=== PATIENT | female | born 1940 | race Caucasian/White ===

== ENCOUNTER 2017-02-10 16:12 | Emergency (ER) | payer MEDICARE, OTHER ==
[2017-02-10] MEDS ORDERED: cefTRIAXone 1 GM in Sodium Chloride 0.9% 50 ML IV ONE (17:52)
--- NOTE | 2017-02-10 17:56 | EDM.PDOC ---
<Najma Tovar - Last Filed: 02/10/17 17:56> ED HPI GENERAL MEDICAL PROBLEM - General Chief Complaint: Lower Extremity Injury/Pain Stated Complaint: ILLNESS FROM THE CLINIC Time Seen by Provider: 02/10/17 17:52 Source of Information: Reports: Patient History Limitations: Reports: No Limitations - History of Present Illness INITIAL COMMENTS - FREE TEXT/NARRATIVE: pt arrived with marked swelling of the great toe and the second toe. This is very hot. The second toe is particularly tender. She has not injured the foot. She was seen yesterday in the clinic and had a uric acid that was moderately elevated. She was started on augmentin and it has not improved. She was sent here because of lack of improvement and on going inflamation Onset: Gradual, Other ( started monday. ) Duration: Day(s):, Getting Worse Location: Reports: Lower Extremity, Right Associated Symptoms: Reports: No Other Symptoms - Related Data Allergies Allergy/AdvReac Type Severity Reaction Status Date / Time No Known Allergies Allergy Verified 09/05/13 10:30 Home Meds: Home Meds Amoxicillin/Clavulanate K [Augmentin 875-125 MG] 02/10/17 [History] Oxybutynin 02/10/17 [History] Past Medical History Musculoskeletal History: Reports: Back Pain, Chronic Dermatologic History: Reports: Benign Melanoma Social & Family History - Tobacco Use Smoking Status *Q: Never Smoker Review of Systems - Review of Systems Review Of Systems: See Below Constitutional: Reports: No Symptoms Eyes: Reports: No Symptoms Ears: Reports: No Symptoms Nose: Reports: No Symptoms Mouth/Throat: Reports: No Symptoms Respiratory: Reports: No Symptoms Cardiovascular: Reports: No Symptoms GI/Abdominal: Reports: No Symptoms Musculoskeletal: Reports: Other ( pain and swelling in the rt foot. ) Skin: Reports: No Symptoms ED EXAM, GENERAL - Physical Exam Free Text/Narrative:: On monday she had pain in the second toe and that has been progressive since that time. She was started on augmentin yesterday and it does not look better today. She is not a diabetic. Exam Limited By: No Limitations General Appearance: Alert, Anxious, Moderate Distress Ears: Normal TMs Nose: Normal Inspection Throat/Mouth: Normal Inspection Head: Atraumatic Neck: Normal Inspection Respiratory/Chest: No Respiratory Distress Cardiovascular: Regular Rate, Rhythm Extremities: Other ( rt foot is red and hot. The hotest and most tender area is the second toe. The geat toe isalso very hot and tender. She has good filluing. She has no known injury. ) Psychiatric: Normal Affect Course - Vital Signs Last Recorded V/S: Last Vital Signs Temp 97.7 F 02/10/17 16:48 Pulse 93 02/10/17 16:48 Resp 16 02/10/17 16:48 BP 136/86 02/10/17 16:48 Pulse Ox 96 02/10/17 16:48 - Orders/Labs/Meds Labs: Laboratory Tests 02/10/17 02/10/17 02/10/17 Range/Units 17:51 17:51 17:51 WBC 9.6 (4.5-11.0) K/uL RBC 4.24 (3.30-5.50) M/uL Hgb 12.8 (12.0-15.0) g/dL Hct 39.6 (36.0-48.0) % MCV 93 (80-98) fL MCH 30 (27-31) pg MCHC 32 (32-36) % Plt Count 353 (150-400) K/uL Neut % (Auto) 66 (36-66) % Lymph % (Auto) 22 L (24-44) % Elk % (Auto) 10 H (2-6) % Eos % (Auto) 2 (2-4) % Baso % (Auto) 0 (0-1) % Sodium 139 L (140-148) mmol/L Potassium 4.4 (3.6-5.2) mmol/L Chloride 104 (100-108) mmol/L Carbon Dioxide 27 (21-32) mmol/L Anion Gap 12.4 (5.0-14.0) mmol/L BUN 20 H (7-18) mg/dL Creatinine 1.4 H (0.6-1.0) mg/dL Est Cr Clr Drug Dosing 31.00 mL/min Estimated GFR (MDRD) 36 L (>60) Glucose 109 H (74-106) mg/dL Uric Acid 6.9 H (2.6-6.2) mg/dL Calcium 9.4 (8.5-10.1) mg/dL Total Bilirubin 0.3 (0.2-1.0) mg/dL AST 22 (15-37) U/L ALT 15 (12-78) U/L Alkaline Phosphatase 62 (46-116) U/L Total Protein 7.3 (6.4-8.2) g/dL Albumin 3.2 L (3.4-5.0) g/dL Globulin 4.1 H (2.3-3.5) g/dL Albumin/Globulin Ratio 0.8 L (1.2-2.2) Meds: Medications Discontinued Medications Generic Name Dose Route Start Last Admin Trade Name Lillie PRN Reason Stop Dose Admin Sodium Chloride 1,000 mls @ 500 mls/hr 02/10/17 18:00 02/10/17 18:42 Normal Saline IV 500 mls/hr ASDIRECTED RYAN Administration Ceftriaxone Sodium 1 gm/ 50 mls @ 100 mls/hr 02/10/17 17:52 02/10/17 18:43 Sodium Chloride IV 02/10/17 18:21 100 mls/hr ONETIME ONE Administration Departure - Departure Disposition: Home, Self-Care 01 Clinical Impression: Cellulitis of right foot - Discharge Information Instructions: Cellulitis, Adult, [id number] Referrals: Aurora Stevens CNM [Primary Care Provider] - Forms: ED Department Discharge Care Plan Goals: Continue taking her antibiotic medication as prescribed, return tomorrow afternoon for another IV dose as planned. Return sooner if worsening such as fever, increased pain or other concerns. <Brannon Murphy - Last Filed: 02/10/17 22:48> ED EXAM, GENERAL - Physical Exam Exam: See Below Course - Re-Assessments/Exams Free Text/Narrative Re-Assessment/Exam: 02/10/17 19:11 68-year-old female with right foot cellulitis seen and evaluated by Dr. Tovar. 1 g of IV Rocephin was given, Dr. Mccloud also looked at the foot. She 'll continue on her Augmentin and return tomorrow for another IV dose of Rocephin, returning sooner if worsening. Departure - Departure Time of Disposition: 19:21 Condition: Fair
[2017-02-10] MEDS ORDERED: Sodium Chloride 0.9% 1,000 ML IV SCH (18:00)
== END 2017-02-10 19:21 | disposition home or self-care (01) ==
LOC: JP.ED 16:12
DX: L03.031 Cellulitis of right toe (principal)
CPT/HCPCS: 36415; 80053; 84550; 85025; 96361; 96365; 99284; J0696; J7040; J7050; 99283

== ENCOUNTER 2017-02-16 09:19 | Emergency (ER) | payer MEDICARE, OTHER ==
--- NOTE | 2017-02-16 10:07 | EDM.PDOC ---
ED HPI GENERAL MEDICAL PROBLEM - General Chief Complaint: Skin Complaint Stated Complaint: SWOLLEN RT FOOT Time Seen by Provider: 02/16/17 09:40 Source of Information: Reports: Patient History Limitations: Reports: No Limitations - History of Present Illness INITIAL COMMENTS - FREE TEXT/NARRATIVE: 76-year-old female with a persistent inflamed and painful right foot is not responding to antibiotics. She received 2 IV courses of Rocephin several days ago and has been continuing on Augmentin. She had a recheck appointment at the clinic today and they didn't feel she was improving so she was sent to the emergency room. She does not feel ill, no fevers or chills. The pain seems worse when she is lifting her foot off of the ground. 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 (see below) (Patient had 2 doses of IV Rocephin and has been on Augmentin for the past week) - Related Data Allergies Allergy/AdvReac Type Severity Reaction Status Date / Time No Known Allergies Allergy Verified 02/16/17 09:32 Home Meds: Home Meds Amoxicillin/Clavulanate K [Augmentin 875-125 MG] 02/10/17 [History] Oxybutynin 02/10/17 [History] Past Medical History Musculoskeletal History: Reports: Back Pain, Chronic Dermatologic History: Reports: Benign Melanoma Social & Family History - Tobacco Use Smoking Status *Q: Never Smoker ED ROS GENERAL - Review of Systems Review Of Systems: See Below Constitutional: Denies: Fever, Chills, Malaise Respiratory: Denies: Shortness of Breath Cardiovascular: Denies: Chest Pain GI/Abdominal: Denies: Abdominal Pain, Nausea, Vomiting Skin: Reports: Erythema Neurological: Reports: No Symptoms Psychiatric: Reports: No Symptoms ED EXAM, SKIN/RASH Exam: See Below Exam Limited By: No Limitations General Appearance: Alert, No Apparent Distress Respiratory/Chest: No Respiratory Distress Extremities: Other (Exam is otherwise limited to the right foot. She still has diffuse erythema through the second toe, some redness extending onto the large toe and edema of the forefoot. Her second toe is particularly tender to any palpation or manipulation. She does have adequate capillary refill to the large toe and second toe to the nailbed.) Course - Vital Signs Last Recorded V/S: Last Vital Signs Temp 96.9 F 02/16/17 09:38 Pulse 92 02/16/17 09:38 Resp 14 02/16/17 09:38 BP 147/83 H 02/16/17 09:38 Pulse Ox 98 02/16/17 09:38 - Orders/Labs/Meds Orders: Active Orders 24 hr Category Date Time Status Foot wo Cont Rt [CT] Stat Exams 02/16/17 09:46 Taken Labs: Laboratory Tests 02/16/17 02/16/17 Range/Units 09:55 09:55 WBC 9.4 (4.5-11.0) K/uL RBC 4.08 (3.30-5.50) M/uL Hgb 12.0 (12.0-15.0) g/dL Hct 37.8 (36.0-48.0) % MCV 93 (80-98) fL MCH 29 (27-31) pg MCHC 32 (32-36) % Plt Count 356 (150-400) K/uL Neut % (Auto) 73 H (36-66) % Lymph % (Auto) 16 L (24-44) % [place] % (Auto) 10 H (2-6) % Eos % (Auto) 1 L (2-4) % Baso % (Auto) 0 (0-1) % C-Reactive Protein 1.36 H (0.0-0.3) mg/dL Meds: Medications Discontinued Medications Generic Name Dose Route Start Last Admin Trade Name Lillie PRN Reason Stop Dose Admin Bupivacaine HCl Confirm 02/16/17 10:58 Marcaine 0.5% Administered 02/16/17 10:59 Dose 30 ml .ROUTE .STK-MED ONE Bupivacaine HCl 30 ml 02/16/17 11:06 02/16/17 11:11 Marcaine 0.5% IARTIC 02/16/17 11:07 30 ml ONETIME ONE Administration Triamcinolone Acetonide Confirm 02/16/17 10:58 02/16/17 11:11 Kenalog-40 Administered 02/16/17 10:59 80 mg Dose Administration 80 mg .ROUTE .STK-MED ONE Triamcinolone Acetonide 80 mg 02/16/17 11:05 Kenalog-40 IARTIC 02/16/17 11:06 ONETIME ONE - Re-Assessments/Exams Free Text/Narrative Re-Assessment/Exam: 02/16/17 10:07 A CRP and CBC was redrawn. I discussed her condition with Enoc Cabral, orthopedics and a CT of the foot was recommended which was ordered. 02/16/17 11:09 CT showed no definite evidence of infection, in fact it is likely a persistent arthritic inflammatory response. Dr. Cabral then was kind enough to inject Kenalog into the inflamed area. Patient will be started on a Medrol Dosepak and continue her antibiotics for the weekend. Departure - Departure Time of Disposition: 11:35 Disposition: Home, Self-Care 01 Condition: Good Clinical Impression: Osteoarthritis Qualifiers: Osteoarthritis location: foot Osteoarthritis type: primary Laterality: right Qualified Code(s): M19.071 - Primary osteoarthritis, right ankle and foot - Discharge Information Instructions: Osteoarthritis Referrals: Aurora Stevens CNM [Primary Care Provider] - Forms: ED Department Discharge Care Plan Goals: Continue the antibiotics as prescribed, take the Medrol Dosepak as prescribed, and increase activity as tolerated. Return anytime if worsening, especially fevers or increased redness or pain of the foot. - My Orders Last 24 Hours: My Active Orders 02/16/17 09:46 Foot wo Cont Rt [CT] Stat - Assessment/Plan Last 24 Hours: My Active Orders 02/16/17 09:46 Foot wo Cont Rt [CT] Stat
[2017-02-16] MEDS ORDERED: Triamcinolone Acetonide 40 MG/ML 1 ML MDV ONE (10:58)
[2017-02-16] MEDS ORDERED: Bupivacaine 0.5% 30 ML SDV ONE (10:58)
[2017-02-16] MEDS ORDERED: Bupivacaine 0.5% 30 ML SDV IARTIC ONE (11:06)
--- NOTE | 2017-02-16 12:05 | CT ---
Foot wo Cont Rt HISTORY: inflammation toes not responding to treatment Axial spiral CT scan of the right foot was obtained along with sagittal and coronal reconstructions. There are no prior exams for comparison. FINDINGS: Joint space narrowing and erosive changes with mild marginal osteophytes is seen about the IP joint right great toe. Similar erosive and hypertrophic changes are seen at the DIP joint left sec ond toe. No fracture is identified. There is mild soft tissue swelling/edema first and second toes. Joint space narrowing and early lateral marginal osteophyte is seen at the right first MTP joint. IMPRESSION: 1. Mild soft tissue swelling and edema right first and second toes. 2. Joint space and with adjacent erosive changes and marginal osteophytes at the AP joint right great toe and DIP joint right second toe are favored to be degenerative or inflammatory. Osteomyelitis is felt to be less likely but not entirely excluded. Gout could be considered. No definite gouty tophus is seen. Total DLP 220 mGycm
== END 2017-02-16 11:35 | disposition home or self-care (01) ==
LOC: JP.ED 09:19
DX: M19.071 Primary osteoarthritis, right ankle and foot (principal)
CPT/HCPCS: 36415; 73700; 85025; 86140; 96372; 99283; 99284; J3301

== ENCOUNTER 2017-05-22 12:18 | Emergency (ER) | payer MEDICARE, OTHER ==
--- NOTE | 2017-05-22 13:04 | EDM.PDOC ---
ED HPI GENERAL MEDICAL PROBLEM - General Chief Complaint: Lower Extremity Injury/Pain Stated Complaint: RT FOOT ISSUES Time Seen by Provider: 05/22/17 12:45 Source of Information: Reports: Patient History Limitations: Reports: No Limitations - History of Present Illness INITIAL COMMENTS - FREE TEXT/NARRATIVE: 76-year-old female that is developing some recurring inflammation in her right foot. She had a similar episode last year that was treated as cellulitis but was actually an inflammatory osteoarthritis problem that responded to an injection of steroids. She wanted to catch this before it gets worse, its been bothering her for the last 48 hours. No fever or chills, no significant erythema. Onset: Gradual (Over the past several days) Severity: Mild Associated Symptoms: Reports: No Other Symptoms toe Pain Score (Numeric/FACES): 1 - Related Data Allergies Allergy/AdvReac Type Severity Reaction Status Date / Time No Known Allergies Allergy Verified 05/22/17 12:33 Home Meds: Home Meds Oxybutynin 2.5 mg PO BID 02/10/17 [History] Calcium Carbonate/Vitamin D3 [Calcium 1,000 + D3 Caplet] 1 tab PO DAILY [History] Past Medical History HEENT History: Reports: Cataract Genitourinary History: Reports: Urinary Incontinence Musculoskeletal History: Reports: Back Pain, Chronic, Fracture Oncologic (Cancer) History: Reports: Breast Dermatologic History: Reports: Benign Melanoma - Infectious Disease History Infectious Disease History: Reports: Chicken Pox - Past Surgical History HEENT Surgical History: Reports: Cataract Surgery Female Surgical History: Reports: Breast Biopsy Musculoskeletal Surgical History: Reports: Other (See Below) Other Musculoskeletal Surgeries/Procedures:: spinal surgery Oncologic Surgical History: Reports: Biopsy of Breast, Lumpectomy Social & Family History - Tobacco Use Smoking Status *Q: Never Smoker - Caffeine Use Caffeine Use: Reports: Coffee - Recreational Drug Use Recreational Drug Use: No Review of Systems - Review of Systems Review Of Systems: See Below Constitutional: Denies: Fever Respiratory: Denies: Shortness of Breath Cardiovascular: Denies: Chest Pain GI/Abdominal: Denies: Nausea, Vomiting Skin: Denies: Erythema Neurological: Denies: Paresthesia ED EXAM, GENERAL - Physical Exam Exam: See Below Exam Limited By: No Limitations General Appearance: Alert, No Apparent Distress Respiratory/Chest: No Respiratory Distress Extremities: Other (Exam is otherwise limited to the feet. There is a small amount of swelling to the MP and IP joint of the right large toe, no significant erythema and only mild tenderness to palpation and range of motion.) Course - Vital Signs Last Recorded V/S: Last Vital Signs Temp 94.1 F L 05/22/17 12:35 Pulse 92 05/22/17 12:35 Resp 16 05/22/17 12:35 BP 150/99 H 05/22/17 12:35 Pulse Ox 96 05/22/17 12:35 - Re-Assessments/Exams Free Text/Narrative Re-Assessment/Exam: 05/22/17 13:02 Patient was placed on 50 mg of prednisone daily for the next 3 days, with a recheck scheduled with Dr. Enoc Cabral at 11:15 on Monday. She may have caught this early enough to just have oral prednisone, a decision will be made for more aggressive treatment on Monday. Departure - Departure Time of Disposition: 13:25 Disposition: Home, Self-Care 01 Condition: Good Clinical Impression: Osteoarthritis Qualifiers: Osteoarthritis location: foot Osteoarthritis type: primary Laterality: right Qualified Code(s): M19.071 - Primary osteoarthritis, right ankle and foot - Discharge Information Instructions: Arthritis, [id number] Referrals: Aurora Stevens CNM [Primary Care Provider] - Forms: ED Department Discharge Care Plan Goals: Take 5 pills of prednisone with food today, tomorrow, and Monday morning with breakfast followed by an appointment with Dr. Enoc Cabral at 11:15 AM. Activity as tolerated.
== END 2017-05-22 13:25 | disposition home or self-care (01) ==
LOC: JP.ED 12:18
DX: M19.071 Primary osteoarthritis, right ankle and foot (principal); Z79.899 Other long term (current) drug therapy
CPT/HCPCS: 99283